=== PATIENT | female | born 1985 | race Hispanic/Latino ===

== ENCOUNTER 2017-11-04 09:31 | Observation (INO) | payer BC ==
[2017-11-04 09:50] VITALS: BMI 26.6
[2017-11-04] MEDS ORDERED: Sodium Chloride 0.9% 1,000 ML IV STA ×3 (10:16→16:00)
[2017-11-04] MEDS ORDERED: Iohexol 240 (50 ml) PO ONE (10:16)
[2017-11-04] MEDS ORDERED: Iohexol 240 (50 ml) ONE (10:28)
[2017-11-04 10:31] LABS: BASO % 0.4 % (0.0-2.0); EOS % 0.2 % (0.0-4.0); HEMOGLOBIN 14.3 g/dL (12.0-16.0); LYMPH # 1.4 K/uL (1.0-4.3); LYMPH % 12.5 % (20.0-40.0); MEAN CELL VOLUME 90.8 fl (81.0-99.0); MEAN CORPUSCULAR HEMOGLOBIN 31.7 pg (27.0-31.0); MEAN CORPUSCULAR HGB CONC 34.9 g/dL (33.0-37.0); MEAN PLATELET VOLUME 8.1 fl (7.2-11.7); MONO # 1.3 K/uL (0.0-0.8); NEUT # 8.4 K/uL (1.8-7.0); NEUT % 74.9 % (50.0-75.0); RBC 4.52 Mil/uL (3.80-5.20); RED CELL DISTRIBUTION WIDTH 12.4 % (11.5-14.5); WHITE BLOOD COUNT 11.2 K/uL (4.8-10.8)
[2017-11-04 10:43] LABS: ALB/GLOB RATIO 1.2 (1.0-2.1); ALBUMIN 4.2 g/dL (3.5-5.0); CALCIUM 9.4 mg/dL (8.4-10.2)
[2017-11-04 11:03] LABS: SQUAMOUS EPITHIAL 10 /hpf (0-5); URINE BACTERIA OCC (<OCC); URINE BILIRUBIN NEGATIVE (NEGATIVE); URINE BLOOD NEGATIVE (NEGATIVE); URINE CLARITY CLOUDY (Clear); URINE COLOR YELLOW (YELLOW); URINE GLUCOSE (UA) NEG (Normal); URINE HYALINE CAST 0-2 /hpf (0-2); URINE LEUKOCYTE ESTERASE SMALL Leu/uL (Negative); URINE PROTEIN 100 mg/dL (NEGATIVE); URINE UROBILINOGEN 0.2-1.0 mg/dL (0.2-1.0)
--- NOTE | 2017-11-04 12:21 | ED PDOC ---
HPI: Abdomen Time Seen by Provider: 11/04/17 10:11 Chief Complaint (Nursing): Abdominal Pain Chief Complaint (Provider): abdominal pain History Per: Patient History/Exam Limitations: no limitations Onset/Duration Of Symptoms: Days (2), Gradual Current Symptoms Are (Timing): Better Location Of Pain/Discomfort: RLQ, LLQ Quality Of Discomfort: Sharp, Cramping Associated Symptoms: Nausea, Diarrhea. denies: Loss Of Appetite, Back Pain, Urinary Symptoms Exacerbating Factors: None Alleviating Factors: None Additional Complaint(s): 32yo female c/o lower abdominal pain ongoing for about 2 days, went to urgent care yesterday had bloodwork performed and she was called this morning informing her that her WBC was 18 and to return to for re-evaluation. She instead came to ED, noting pain is actually a little better than yesterday. She does note persistent nausea and loose stools but denies vomiting today. Denies fever, sick contacts or foreign travel. Past Medical History Reviewed: Historical Data, Nursing Documentation, Vital Signs Vital Signs: Last Vital Signs Temp 98 F 11/04/17 10:09 Pulse 91 H 11/04/17 09:50 Resp 17 11/04/17 09:50 BP 130/70 11/04/17 10:09 Pulse Ox 98 11/04/17 16:03 - Medical History Other PMH: takes antidepressant and adderall - Surgical History Surgical History: No Surg Hx - Family History Family History: States: Unknown Family Hx - Social History Current smoker - smoking cessation education provided: No - Immunization History Hx Tetanus Toxoid Vaccination: No Hx Influenza Vaccination: No Hx Pneumococcal Vaccination: No - Allergies Allergies/Adverse Reactions: Allergies Allergy/AdvReac Type Severity Reaction Status Date / Time No Known Allergies Allergy Verified 11/04/17 10:09 Review of Systems ROS Statement: Except As Marked, All Systems Reviewed And Found Negative Constitutional: Negative for: Fever Cardiovascular: Negative for: Chest Pain Respiratory: Negative for: Shortness of Breath Gastrointestinal: Positive for: Nausea, Abdominal Pain, Diarrhea. Negative for : Constipation Genitourinary Female: Negative for: Dysuria Musculoskeletal: Negative for: Neck Pain Skin: Negative for: Rash, Lesions Neurological: Negative for: Weakness, Numbness Physical Exam - Reviewed Nursing Documentation Reviewed: Yes Vital Signs Reviewed: Yes - Physical Exam Appears: Positive for: Well, Non-toxic, No Acute Distress Head Exam: Positive for: ATRAUMATIC, NORMAL INSPECTION, NORMOCEPHALIC Skin: Positive for: Normal Color, Warm, DRY Eye Exam: Positive for: EOMI, Normal appearance, PERRL ENT: Positive for: Normal ENT Inspection Neck: Positive for: Normal, Painless ROM Cardiovascular/Chest: Positive for: Regular Rate, Rhythm Respiratory: Positive for: CNT, Normal Breath Sounds Gastrointestinal/Abdominal: Positive for: Soft, Tenderness (mild bilateral lower abd tenderness) Back: Positive for: Normal Inspection Extremity: Positive for: Normal ROM Neurologic/Psych: Positive for: Alert, Oriented - Laboratory Results Result Diagrams: 11/04/17 10:25 11/04/17 14:45 - ECG O2 Sat by Pulse Oximetry: 98 Medical Decision Making Medical Decision Making: workup for abd pain w reported leukocytosis as outpatient initiated labs, CT abd pelv and UA/ status ordered IVF bolus, toradol for pain and antiemetic initiated labs reviewed Labor Contract Analyst elevated, change CT to no IV contrast and additional IVF ordered WBC 11.2 Preg neg lipase mildly elevated Hgb and plt normal unlikely HUS Time: 1308 --Abd CT FINDINGS: LOWER THORAX: The visualized lungs are clear. LIVER: Normal in size. No gross lesion or ductal dilatation. GALLBLADDER AND BILE DUCTS: No calcified gallstones. PANCREAS: Normal in size. No calcifications or ductal dilatation. SPLEEN: Normal in size. ADRENALS: No discrete nodule. KIDNEYS AND URETERS: Normal in size without nephrolithiasis. No hydronephrosis. There is nonspecific perinephric fat stranding. VASCULATURE: No aortic aneurysm. BOWEL: The small bowel loops are normal in caliber. There is apparent mild mural thickening in the colon. No bowel dilatation or obstruction. APPENDIX: Normal appendix. PERITONEUM: No free fluid. No free air. LYMPH NODES: No enlarged lymph nodes. BLADDER: Unremarkable. REPRODUCTIVE: The uterus is anteverted. There are a subserosal fibroids in the anterior wall of the midbody and in the posterior fundus. BONES: No acute fracture. Within normal limits for the patient's age. OTHER FINDINGS: None. IMPRESSION: 1. Apparent mild mural thickening in the colon is nonspecific and could be related to underdistention however nonspecific early acute infectious/ inflammatory colitis is also a differential consideration. Clinical correlation and follow-up is advised. No bowel dilatation or obstruction. 2. Fibroid uterus. 230p patient improving denies current abd pain and has had no diarrhea today D/w SEA Juárez at [facility]- reports labs yesterday normal BUN and Labor Contract Analyst 1.3, normal lipase. They have urine culture pending. No evidence acute pancreatitis on Ct and pain now improved hence unlilkely early pancreatitis. time- 330p- no further diarrhea, IVF continuing Labs repeated to gauge improvement of kidney function after 2L IVF Labor Contract Analyst remains elevated from yesterday, still 2.1/ BUN only slightly improved 5p re-eval now back in significant pain. Required morphine 2mg IV for pain. Will start cipro and flagyl empirically given now clinical deterioration and evidence significant dehydration Will place Obs to Dr Og Scribe Attestation: Documented by Gabby George, acting as a scribe for Christian Cummings DO. Provider Scribe Attestation: All medical record entries made by the Scribe were at my direction and personally dictated by me. I have reviewed the chart and agree that the record accurately reflects my personal performance of the history, physical exam, medical decision making, and the department course for this patient. I have also personally directed, reviewed, and agree with the discharge instructions and disposition. Disposition - Clinical Impression Clinical Impression: Dehydration, Acute kidney injury - Patient ED Disposition Is Patient to be Admitted: No Counseled Patient/Family Regarding: Studies Performed, Diagnosis, Need For Followup, Rx Given - Disposition Referrals: Bruno Og MD [Staff Provider] - Disposition: Routine/Home Disposition Time: 16:50 Condition: STABLE Additional Instructions: DRINK PLENTY OF FLUIDS, AVOID ALCOHOL OR CAFFEINE FOR ONE WEEK. HAVE YOUR BLOODWORK REPEATED IN 3-5 DAYS TO ASSURE RESOLUTION OF YOUR KIDNEY INJURY. RETURN TO ER FOR ANY FEVER, WORSE PAIN, RASH OR WEAKNESS. DR OG AWARE OF YOUR CASE. CALL TOMORROW FOR APPOINTMENT WEDNESDAY FOR REPEAT BLOODWORK, OR RETURN TO ER NEEDED. Forms: [employer] (E[place]ian)
--- NOTE | 2017-11-04 13:09 | CT ---
PROCEDURE: CT Abdomen and Pelvis with contrast HISTORY: Lower abdominal pain, diarrhea COMPARISON: None. TECHNIQUE: CT scan of the abdomen and pelvis was performed without administration of intravenous contrast. Oral contrast was administered. Coronal and sagittal reformatted images were obtained. Radiation dose: Total exam DLP = 835.70 mGy-cm. This CT exam was performed using one or more of the following dose reduction techniques: Automated exposure control, adjustment of the mA and/or kV according to patient size, and/or use of iterative reconstruction technique. FINDINGS: LOWER THORAX: The visualized lungs are clear. LIVER: Normal in size. No gross lesion or ductal dilatation. GALLBLADDER AND BILE DUCTS: No calcified gallstones. PANCREAS: Normal in size. No calcifications or ductal dilatation. SPLEEN: Normal in size. ADRENALS: No discrete nodule. KIDNEYS AND URETERS: Normal in size without nephrolithiasis. No hydronephrosis. There is nonspecific perinephric fat stranding. VASCULATURE: No aortic aneurysm. BOWEL: The small bowel loops are normal in caliber. There is apparent mild mural thickening in the colon. No bowel dilatation or obstruction. APPENDIX: Normal appendix. PERITONEUM: No free fluid. No free air. LYMPH NODES: No enlarged lymph nodes. BLADDER: Unremarkable. REPRODUCTIVE: The uterus is anteverted. There are a subserosal fibroids in the anterior wall of the midbody and in the posterior fundus. BONES: No acute fracture. Within normal limits for the patient's age. OTHER FINDINGS: None. IMPRESSION: 1. Apparent mild mural thickening in the colon is nonspecific and could be related to underdistention however nonspecific early acute infectious/ inflammatory colitis is also a differential consideration. Clinical correlation and follow-up is advised. No bowel dilatation or obstruction. 2. Fibroid uterus.
[2017-11-04 15:09] LABS: CALCIUM 8.7 mg/dL (8.4-10.2)
[2017-11-04] MEDS ORDERED: metroNIDAZOLE 500mg/100ml NS 100 ML IV STA (17:11)
[2017-11-04] MEDS ORDERED: metroNIDAZOLE 500mg/100ml NS 100 ML IVPB ONE (17:21)
[2017-11-04] MEDS ORDERED: Ciprofloxacin 400mg/200ml D5W 400 MG/200 ML BAG IVPB ONE (18:31)
[2017-11-04] MEDS: Ciprofloxacin 400mg/200ml D5W 400 MG/200 ML BAG IVPB SCH ×2 (18:36→23:24)
[2017-11-04] MEDS: Sodium Chloride 0.9% 1,000 ML IV SCH (19:29)
[2017-11-04] MEDS ORDERED: Oxycodone/Acetaminophen 5/325 mg Tab ONE ×2 (19:50→20:00)
[2017-11-04] MEDS ORDERED: Oxycodone/Acetaminophen 5/325 mg Tab PO STA (19:58)
--- NOTE | 2017-11-04 20:46 | CP.PCM.HP ---
<Billy Martinez - Last Filed: 11/05/17 01:55> History of Present Illness - History of Present Illness History of Present Illness: 32 YO F w/ PMH of depression, ADHD presented to the ER with 2 days of abdominal pain with diarrhea. Diarrhea was watery but did not contain any blood. Yesterday patient had 10 episode of diarrhea. Today she has only had one. She has been feeling nauseous as well. Denies any vomiting, fever or chills. Yesterday patient had gone to urgent care where she had bloodwork done and they called her to inform her that her WBC was 18 and to return to the urgent care, however patient decided to come to the hospital today. 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 At home she took 1 roxicodone for the pain relief which was not prescribed to her. Patient states that she has noted gastritis since her prozac dose was increased from 20 mg to 40 mg by her psychiatrist. PMD:Dr. Cuogn Melendrez PMH: Depression, ADHD PSH: Benign Cyst removal from her right breast 14 years ago Allergy: Pollen: FH:Mother : HTN, Bipolar. Father: HTN, HLD, PTSD SH: Occasional Marajuana usage. Occasional alcohol usage, Denies smoking Meds: Prozac 40mg, Junel 07/03, Valtex, Trazadone 50 mg (Not taking) Present on Admission - Present on Admission Any Indicators Present on Admission: No Review of Systems - Review of Systems All systems: reviewed and no additional remarkable complaints except Past Patient History - Past Social History Smoking Status: Never Smoked - PSYCHIATRIC Hx Substance Use: No - ANESTHESIA Hx Anesthesia: Yes Hx Anesthesia Reactions: No Hx Malignant Hyperthermia: No Meds Allergies/Adverse Reactions: Allergies Allergy/AdvReac Type Severity Reaction Status Date / Time No Known Allergies Allergy Verified 11/04/17 10:09 Physical Exam - Constitutional Appears: No Acute Distress - Head Exam Head Exam: NORMAL INSPECTION - Eye Exam Eye Exam: Normal appearance - ENT Exam ENT Exam: Mucous Membranes Moist, Normal Exam - Neck Exam Neck exam: Positive for: Normal Inspection - Respiratory Exam Respiratory Exam: Clear to Auscultation Bilateral, NORMAL BREATHING PATTERN. absent: Rhonchi, Wheezes - Cardiovascular Exam Cardiovascular Exam: REGULAR RHYTHM, +S1, +S2 - GI/Abdominal Exam GI & Abdominal Exam: Soft, Tenderness Additional comments: Epigastic, right lower quadrant and left quadrant tenderness - Extremities Exam Extremities exam: Positive for: normal inspection - Back Exam Back exam: absent: CVA tenderness (L), CVA tenderness (R) - Neurological Exam Neurological exam: Alert, CN II-XII Intact, Oriented x3 - Skin Skin Exam: Normal Color, Warm Results - Vital Signs Recent Vital Signs: Last Vital Signs Temp 98.6 F 11/04/17 18:56 Pulse 93 H 11/04/17 19:50 Resp 18 11/04/17 19:50 BP 173/107 H 11/04/17 19:50 Pulse Ox 100 11/04/17 19:50 - Labs Result Diagrams: 11/04/17 10:25 11/04/17 14:45 Labs: Laboratory Results - last 24 hr 11/04/17 11/04/17 11/04/17 10:20 10:25 10:25 WBC 11.2 H RBC 4.52 Hgb 14.3 Hct 41.1 MCV 90.8 MCH 31.7 H MCHC 34.9 RDW 12.4 Plt Count 293 MPV 8.1 Neut % (Auto) 74.9 Lymph % (Auto) 12.5 L [place] % (Auto) 12.0 H Eos % (Auto) 0.2 Baso % (Auto) 0.4 Neut # (Auto) 8.4 H Lymph # (Auto) 1.4 [place] # (Auto) 1.3 H Eos # (Auto) 0.0 Baso # (Auto) 0.0 Sodium 137 Potassium 4.8 Chloride 98 Carbon Dioxide 22 Anion Gap 22 H BUN 29 H Creatinine 2.1 H Est GFR ( Amer) 33 Est GFR (Non-Af Amer) 27 Random Glucose 121 H Calcium 9.4 Total Bilirubin 0.6 AST 37 H ALT 44 Alkaline Phosphatase 41 Total Protein 7.7 Albumin 4.2 Globulin 3.5 Albumin/Globulin Ratio 1.2 Lipase 535 H Urine Color Yellow Urine Clarity Cloudy Urine pH 5.0 Ur Specific [place] 1.015 Urine Protein 100 Urine Glucose (UA) Neg Urine Ketones Negative Urine Blood Negative Urine Nitrate Negative Urine Bilirubin Negative Urine Urobilinogen 0.2-1.0 Ur Leukocyte Esterase Small Urine RBC (Auto) 3 Urine Microscopic WBC 5 Ur Squamous Epith Cells 10 H Urine Bacteria Occ H Hyaline Casts 0-2 11/04/17 14:45 WBC RBC Hgb Hct MCV MCH MCHC RDW Plt Count MPV Neut % (Auto) Lymph % (Auto) [place] % (Auto) Eos % (Auto) Baso % (Auto) Neut # (Auto) Lymph # (Auto) [place] # (Auto) Eos # (Auto) Baso # (Auto) Sodium 135 Potassium 4.6 Chloride 100 Carbon Dioxide 21 L Anion Gap 19 BUN 27 H Creatinine 2.1 H Est GFR ( Amer) 33 Est GFR (Non-Af Amer) 27 Random Glucose 97 Calcium 8.7 Total Bilirubin AST ALT Alkaline Phosphatase Total Protein Albumin Globulin Albumin/Globulin Ratio Lipase Urine Color Urine Clarity Urine pH Ur Specific [place] Urine Protein Urine Glucose (UA) Urine Ketones Urine Blood Urine Nitrate Urine Bilirubin Urine Urobilinogen Ur Leukocyte Esterase Urine RBC (Auto) Urine Microscopic WBC Ur Squamous Epith Cells Urine Bacteria Hyaline Casts Assessment & Plan - Assessment and Plan (Free Text) Assessment: 32 YO F w/ PMH of Depression, ADHD is here today for abdominal pain and diarrhea. 1) Abdominal pain: Collitis vs Pancreatitis - WBC outpatient was 18 today it is 11.2 - Lipase : 535 - CT abdomen: Mural thickening of colon could be related to underdistention however nonspecific early acute infectious/ inflammatory colitis. - Protonix 40 daily - Pain meds ordered - Antibiotic Tx: IV cipro and flagyl - GI consulted - F/U with morning CBC 2) SHANON - Creatinine: 2.1, BUN: 27 - 3 L bolus given in ER - Repeat creatinine after 2 L of fluids was 2.1 - NS @ 200ml/hr - Nephro consulted - Urine Lytes ordered. - F/U with morning CMP 3) ADHD - Hold medications 4) Depression - Prozac dose decreased from 40mg to 20mg since GI upset started after dose increase 5) DVT prophylaxis - Lovenox <Bruno Melendrez A - Last Filed: 11/05/17 06:59> Results - Vital Signs Recent Vital Signs: Last Vital Signs Temp 98.5 F 11/05/17 04:59 Pulse 81 11/05/17 04:59 Resp 18 11/05/17 04:59 BP 147/88 11/05/17 04:59 Pulse Ox 96 11/05/17 04:59 - Labs Result Diagrams: 11/04/17 10:25 11/05/17 05:00 Labs: Laboratory Results - last 24 hr 11/04/17 11/04/17 11/04/17 10:20 10:25 10:25 WBC 11.2 H RBC 4.52 Hgb 14.3 Hct 41.1 MCV 90.8 MCH 31.7 H MCHC 34.9 RDW 12.4 Plt Count 293 MPV 8.1 Neut % (Auto) 74.9 Lymph % (Auto) 12.5 L [place] % (Auto) 12.0 H Eos % (Auto) 0.2 Baso % (Auto) 0.4 Neut # (Auto) 8.4 H Lymph # (Auto) 1.4 [place] # (Auto) 1.3 H Eos # (Auto) 0.0 Baso # (Auto) 0.0 Sodium 137 Potassium 4.8 Chloride 98 Carbon Dioxide 22 Anion Gap 22 H BUN 29 H Creatinine 2.1 H Est GFR ( Amer) 33 Est GFR (Non-Af Amer) 27 Random Glucose 121 H Calcium 9.4 Total Bilirubin 0.6 AST 37 H ALT 44 Alkaline Phosphatase 41 Total Protein 7.7 Albumin 4.2 Globulin 3.5 Albumin/Globulin Ratio 1.2 Triglycerides Cholesterol LDL Cholesterol Direct HDL Cholesterol Lipase 535 H Urine Color Yellow Urine Clarity Cloudy Urine pH 5.0 Ur Specific [place] 1.015 Urine Protein 100 Urine Glucose (UA) Neg Urine Ketones Negative Urine Blood Negative Urine Nitrate Negative Urine Bilirubin Negative Urine Urobilinogen 0.2-1.0 Ur Leukocyte Esterase Small Urine RBC (Auto) 3 Urine Microscopic WBC 5 Ur Squamous Epith Cells 10 H Urine Bacteria Occ H Hyaline Casts 0-2 11/04/17 11/05/17 14:45 05:00 WBC RBC Hgb Hct MCV MCH MCHC RDW Plt Count MPV Neut % (Auto) Lymph % (Auto) [place] % (Auto) Eos % (Auto) Baso % (Auto) Neut # (Auto) Lymph # (Auto) [place] # (Auto) Eos # (Auto) Baso # (Auto) Sodium 135 140 Potassium 4.6 4.2 Chloride 100 105 Carbon Dioxide 21 L 26 Anion Gap 19 13 BUN 27 H 23 H Creatinine 2.1 H 1.7 H Est GFR ( Amer) 33 42 Est GFR (Non-Af Amer) 27 34 Random Glucose 97 97 Calcium 8.7 8.2 L Total Bilirubin 0.3 AST 36 ALT 40 Alkaline Phosphatase 40 Total Protein 5.8 L Albumin 3.1 L D Globulin 2.7 Albumin/Globulin Ratio 1.1 Triglycerides 99 Cholesterol 117 LDL Cholesterol Direct 62 HDL Cholesterol 31 Lipase Urine Color Urine Clarity Urine pH Ur Specific [place] Urine Protein Urine Glucose (UA) Urine Ketones Urine Blood Urine Nitrate Urine Bilirubin Urine Urobilinogen Ur Leukocyte Esterase Urine RBC (Auto) Urine Microscopic WBC Ur Squamous Epith Cells Urine Bacteria Hyaline Casts Attending/Attestation - Attestation I have personally seen and examined this patient.: Yes I have fully participated in the care of the patient.: Yes I have reviewed all pertinent clinical information: Yes
[2017-11-05] MEDS: metroNIDAZOLE 500mg/100ml NS 100 ML IVPB SCH ×3 (02:23→18:03)
[2017-11-05] MEDS: Oxycodone/Acetaminophen 5/325 mg Tab PO PRN ×4 (03:55→21:31)
[2017-11-05 05:58] LABS: ALB/GLOB RATIO 1.1 (1.0-2.1); ALBUMIN 3.1 g/dL (3.5-5.0); CALCIUM 8.2 mg/dL (8.4-10.2)
--- NOTE | 2017-11-05 07:15 | CARD ---
APPROVED REPORT EKG Measurement Heart [id number] <Conclusion> Sinus rhythm with short ME Otherwise normal ECG
[2017-11-05 07:55] LABS: BASO % 0.2 % (0.0-2.0); EOS % 0.3 % (0.0-4.0); HEMOGLOBIN 12.4 g/dL (12.0-16.0); LYMPH # 1.1 K/uL (1.0-4.3); LYMPH % 12.2 % (20.0-40.0); MEAN CELL VOLUME 91.6 fl (81.0-99.0); MEAN CORPUSCULAR HEMOGLOBIN 31.4 pg (27.0-31.0); MEAN CORPUSCULAR HGB CONC 34.3 g/dL (33.0-37.0); MEAN PLATELET VOLUME 8.6 fl (7.2-11.7); MONO % 11.1 % (0.0-10.0); NEUT # 7.1 K/uL (1.8-7.0); NEUT % 76.2 % (50.0-75.0); RBC 3.96 Mil/uL (3.80-5.20); RED CELL DISTRIBUTION WIDTH 12.3 % (11.5-14.5); WHITE BLOOD COUNT 9.3 K/uL (4.8-10.8)
--- NOTE | 2017-11-05 08:51 | CP.PCM.PN ---
Subjective - Date & Time of Evaluation Date of Evaluation: 11/05/17 Time of Evaluation: 07:00 - Subjective Subjective: 32 y/o F seen and examined by bedside. Pt reports feeling better. Abdominal pain is still present but to a less degree of intensity. No diarrhea and no vomiting episodes since yesterday. No acute events overnight. Pt denies fever, chills, nausea, acid reflux, CP, SOB or calf pain. Objective - Vital Signs/Intake and Output Vital Signs (last 24 hours): Temp Pulse Resp BP Pulse Ox 98.0 F 75 20 137/94 H 97 11/05/17 08:17 11/05/17 08:17 11/05/17 08:17 11/05/17 08:17 11/05/17 08:17 - Medications Medications: Current Medications Enoxaparin Sodium (Lovenox) 40 mg SC DAILY [facility] PRN Reason: Protocol Fluoxetine HCl (Prozac) 20 mg PO DAILY [facility] Last Admin: 11/04/17 23:25 Dose: 20 mg Ciprofloxacin (Cipro 400mg/200ml Dsw) 400 mg in 200 mls @ 200 mls/hr IVPB Q12 [facility] PRN Reason: Protocol Last Admin: 11/04/17 23:24 Dose: 200 mls/hr Sodium Chloride (Sodium Chloride 0.9%) 1,000 mls @ 200 mls/hr IV .Q5H [facility] Stop: 11/05/17 19:08 Last Admin: 11/04/17 19:29 Dose: 200 mls/hr Metronidazole (Flagyl 500mg/100ml Ns) 100 mls @ 100 mls/hr IVPB Q8 [facility] PRN Reason: Protocol Last Admin: 11/05/17 02:23 Dose: 100 mls/hr Morphine Sulfate (Morphine) 2 mg IVP Q6 PRN PRN Reason: Pain, severe (8-10) Ondansetron HCl (Zofran Odt) 4 mg PO Q8H PRN PRN Reason: Nausea/Vomiting Oxycodone/Acetaminophen (Percocet 5/325 Mg Tab) 1 tab PO Q6 PRN PRN Reason: Pain, moderate (4-7) Stop: 11/07/17 19:30 Oxycodone/Acetaminophen (Percocet 5/325 Mg Tab) 2 tab PO Q6 PRN PRN Reason: Pain, severe (8-10) Stop: 11/07/17 22:50 Last Admin: 11/05/17 03:55 Dose: 2 tab Pantoprazole Sodium (Protonix Inj) 40 mg IVP DAILY YO - Labs Labs: 11/05/17 07:50 11/05/17 05:00 - Head Exam Head Exam: ATRAUMATIC - Eye Exam Eye Exam: EOMI, Normal appearance - ENT Exam ENT Exam: Mucous Membranes Moist - Neck Exam Neck Exam: Full ROM - Respiratory Exam Respiratory Exam: Clear to Ausculation Bilateral, NORMAL BREATHING PATTERN - Cardiovascular Exam Cardiovascular Exam: REGULAR RHYTHM, +S1, +S2 - GI/Abdominal Exam GI & Abdominal Exam: Soft, Tenderness (on lower quadrants.), Normal Bowel Sounds. absent: Distended, Guarding, Rigid, Rebound - Extremities Exam Extremities Exam: Full ROM, Normal Inspection. absent: Calf Tenderness, Pedal Edema - Neurological Exam Neurological Exam: Alert, Awake, Oriented x3 - Psychiatric Exam Psychiatric exam: Normal Mood Assessment and Plan - Assessment and Plan (Free Text) Assessment: 32 y/o F with a PMHx of Depression and ADHD with abdominal pain and diarrhea, is admitted for evaluation and treatment of Acute Kidney Failure and possible colitis. - CT abdomen: Mural thickening of colon could be related to underdistention however nonspecific early acute infectious/ inflammatory colitis. Abdominal pain: Collitis vs Pancreatitis -WBC trending down and now normal: 18 -> 11.2 -> 9.3 -Lipase 11/04/17: 535-high -C/w IV Protonix, IV cipro and IV flagyl -Pain management: PO Percocet and IV Morphine. -GI consulted, Dr Newell. -F/U GI recommendations. -Ordered Stool culture and ova&parasite Acute Kidney Injury -BUN/Creatinine 23/1.7-high(Abnl), eGFR 34-low (Abnl). -NSS at 75 ml/hr, maintenance. -Nephrology, Dr Cameron, on board. -F/U urine electrolytes, UDS, urine culture. ADHD -Hold medications Depression -Prozac 20mg DVT prophylaxis -Lovenox 40mg SC.
[2017-11-05] MEDS: Enoxaparin 40 mg Syringe SC SCH (08:54)
[2017-11-05] MEDS: Ciprofloxacin 400mg/200ml D5W 400 MG/200 ML BAG IVPB SCH ×2 (08:55→21:31)
[2017-11-05] MEDS: Sodium Chloride 0.9% 1,000 ML IV SCH (08:56)
[2017-11-05] MEDS ORDERED: metroNIDAZOLE 500mg/100ml NS 100 ML IVPB SCH (09:00)
[2017-11-05] MEDS ORDERED: Sodium Chloride 0.9% 1,000 ML IV SCH (12:08)
--- NOTE | 2017-11-05 12:30 | CP.PCM.CON ---
History of Present Illness - History of Present Illness History of Present Illness: This patient however is 72 years of age. I was called to see for abnormal kidney function. This patient will came was 2 days of abdominal pain diarrhea no blood. I noted that she has high BUN/creatinine and she has leukocytosis for which she was admitted for further evaluation. Patient started on IV antibiotics and intravenous fluid. PMH: Depression, ADHD PSH: Benign Cyst removal from her right breast 14 years ago Allergy: Pollen: FH:Mother : HTN, Bipolar. Father: HTN, HLD, PTSD SH: Occasional Marajuana usage. Occasional alcohol usage, Denies smoking Meds: Prozac 40mg, Junel 07/03, Valtex, Trazadone 50 mg (Not taking) Review of Systems - Constitutional Constitutional: Anorexia. absent: Chills - EENT Eyes: As Per HPI Nose/Mouth/Throat: As Per HPI - Cardiovascular Cardiovascular: absent: Chest Pain, Chest Pain at Rest, Dyspnea, Edema - Respiratory Respiratory: absent: Cough, Dyspnea, Hemoptysis, Dyspnea on Exertion, Chest Congestion - Gastrointestinal Gastrointestinal: Abdominal Pain, Bloating, Diarrhea, Nausea. absent: Coffee Ground Emesis, Dysphagia - Genitourinary Genitourinary: Nocturia. absent: Pyuria - Menstruation Menstruation: As Per HPI - Musculoskeletal Musculoskeletal: absent: Abnormal Gait, Arthralgias, Atrophy, Joint Swelling, Numbness - Integumentary Integumentary: absent: Hirsutism - Neurological Neurological: absent: Abnormal Gait, Confusion, Dizziness, Numbness, Focal Weakness - Psychiatric Psychiatric: As Per HPI - Hematologic/Lymphatic Hematologic: absent: Easy Bleeding Past Patient History - Past Medical History & Family History Past Medical History?: Yes - Past Social History Smoking Status: Never Smoked - CARDIAC Hx Cardiac Disorders: No Hx Angina: No Hx Atrial Fibrillation: No Hx Cardia Arrhythmia: No Hx Circulatory Problems: No Hx Congestive Heart Failure: No Hx Heart Attack: No Hx Heart Murmur: No Hx Heart Transplant: No Hx Hypercholesterolemia: No Hx Hypertension: Yes Hx Hypotension: No Hx Internal Defibrillator: No Hx Mitral Valve Prolapse: No Hx Pacemaker: No Hx Peripheral Edema: No Hx Peripheral Vascular Disease: No - PULMONARY Hx Respiratory Disorders: No Hx Asthma: Yes Hx Bronchitis: No Hx Chronic Obstructive Pulmonary Disease (COPD): No Hx Emphysema: No Hx Lung Cancer: No Hx Pneumonia: No Hx Pulmonary Edema: No Hx Pulmonary Embolism: No Hx Respiratory Aspiration: No Hx Respiratory Tract Infection: No Hx Sleep Apnea: No Hx Tuberculosis: No - NEUROLOGICAL Hx Neurological Disorder: No Hx Alzheimer's Disease: No HX Cerebrovascular Accident: No Hx Dementia: No Hx Dizziness: Yes Hx Meningitis: No Hx Migraine: Yes Hx Multiple Sclerosis: No Hx Paralysis: No Hx Parkinson's Disease: No Hx Seizures: No Hx Syncope: No Hx Transient Ischemic Attacks (TIA): No Hx Vertigo: No - HEENT Hx HEENT Problems: No Hx Blind: No Hx Cataracts: No Hx Deafness: No Hx Difficulty Chewing: No Hx Epistaxis: No Hx Glaucoma: No Hx Macular Degeneration: No Hx Sinusitis: No - RENAL Hx Chronic Kidney Disease: No Hx Dialysis: No Hx Kidney Stones: No Hx Neurogenic Bladder: No Hx Pyelonephritis: No Hx Renal (Kidney) Cancer: No Hx Renal Failure: No - ENDOCRINE/METABOLIC Hx Endocrine Disorders: No Hx Adrenal Cancer: No Hx Diabetes Insipidus: No Hx Diabetes Mellitus Type 1: No Hx Diabetes Mellitus Type 2: No Hx Hyperthyroidism: No Hx Hypothyroidism: No Hx Systemic Lupus Erythematosus: No - HEMATOLOGICAL/ONCOLOGICAL Hx Blood Disorders: No Hx AIDS: No Hx Anemia: No Hx Blood Transfusions: No Hx Blood Transfusion Reaction: No Hx Bruising: No Hx Cancer: No Hx Chemotherapy: No Hx Cirrhosis: No Hx Gum Bleeding: No Hx Hemophilia: No Hx Hepatitis A: No Hx Hepatitis B: No Hx Hepatitis C: No Hx Human Immunodeficiency Virus (HIV): No Hx Leukemia: No Hx Metastesis: No Hx Shingles: No Hx Sickle Cell Disease: No Hx Unexplained Bleeding: No Hx von Willebrand's Disease: No - INTEGUMENTARY Hx Dermatological Problems: No Hx Basil Cell: No Hx Garcia: No Hx Cellulitis: No Hx Eczema: No Hx Melanoma: No Hx Psoriasis: No Hx Squamous Cell: No - MUSCULOSKELETAL/RHEUMATOLOGICAL Hx Musculoskeletal Disorders: No Hx Arthritis: No Hx Back Pain: No Hx Degenerative Joint Disease: No Hx Falls: No Hx Fractures: No Hx Gout: No Hx Herniated Disk: No Hx Myasthenia Gravis: No Hx Osteoarthritis: No Hx Osteomyelitis: No Hx Osteoporosis: No Hx Rhabdomyolysis: No Hx Rheumatoid Arthritis: No Hx Spinal Stenosis: No Hx Unsteady Gait: No - GASTROINTESTINAL Hx Gastrointestinal Disorders: No Hx Bowel Surgery: No Hx Clostridium Difficile: No Hx Colitis: No Hx Colostomy: No Hx Constipation: No Hx Crohn's Disease: No Hx Diarrhea: Yes Hx Diverticulitis: No Hx Esophageal Varices: No Hx Fatty Liver Disease: No Hx Gall Bladder Disease: No Hx Gastritis: No Hx Gastroesophageal Reflux: No Hx Hemorrhoids: No Hx Ileostomy: No Hx Irritable Bowel: No Hx Liver Failure: No Hx Nausea: No Hx Pancreatitis: No HX Swallowing Problems: No Hx Ulcer: No Hx Vomiting: No - GENITOURINARY/GYNECOLOGICAL Hx Genitourinary Disorders: No Hx Bladder Cancer: No Hx Bladder Stone: No Hx Cervical Cancer: No Hx Hematuria: No Hx Incontinence: No Hx Ovarian Cancer: No Hx Postmenopausal Bleeding: No Hx Reproductive Disorders: No Hx Sexually Transmitted Disorders: No Hx Uterine Cancer: No Hx Urinary Tract Infection: No - PSYCHIATRIC Hx Substance Use: No - SURGICAL HISTORY Hx Surgeries: No Hx Abdominal Aortic Aneurysm Repair: No Hx Amputation: No Hx Angiogram: No Hx Angioplasty: No Hx Appendectomy: No Hx Arteriovenous Shunt: No Hx Arthroscopy: No Hx Bile Duct Stent: No Hx Breast Biopsy: No Hx Cataract Extraction: No Hx Cardiac Catheterization: No Hx Carotid Endarterectomy: No Hx Section: No Hx Cholecystectomy: No Hx Coronary Artery Bypass Graft: No Hx Coronary Stent: No Hx Dilation and Curettage: No Hx Eye Surgery: No Hx Femoral-Popliteal Bypass Graft: No Hx Gastric Bypass Surgery: No Hx Herniorrhaphy: No Hx Hysterectomy: No Hx Joint Replacement: No Hx Kidney Transplant: No Hx Liver Transplant: No Hx Mastectomy: No Hx Musculoskeletal Surgery: No Hx Open Heart Surgery: No Hx Open Reduction Internal Fixation: No Hx Orthopedic Surgery: No Hx Parathyroidectomy: No Hx Penile Implant: No Hx Pulmonary Surgery: No Hx Splenectomy: No Hx Thyroidectomy: No Hx Tonsillectomy: No Hx Tubal Ligation: No Hx Valve Replacement: No Hx Vascular Surgery: No Hx Vascular Access Device: No Other/Comment: 2 benign tumors removed from R breast - ANESTHESIA Hx Anesthesia: Yes Hx Anesthesia Reactions: No Hx Malignant Hyperthermia: No Meds Allergies/Adverse Reactions: Allergies Allergy/AdvReac Type Severity Reaction Status Date / Time No Known Allergies Allergy Verified 11/04/17 10:09 - Medications Medications: Current Medications Enoxaparin Sodium (Lovenox) 40 mg SC DAILY YO PRN Reason: Protocol Last Admin: 11/05/17 08:54 Dose: 40 mg Fluoxetine HCl (Prozac) 20 mg PO DAILY [facility] Last Admin: 11/05/17 08:54 Dose: 20 mg Ciprofloxacin (Cipro 400mg/200ml Dsw) 400 mg in 200 mls @ 200 mls/hr IVPB Q12 YO PRN Reason: Protocol Last Admin: 11/05/17 08:55 Dose: 200 mls/hr Metronidazole (Flagyl 500mg/100ml Ns) 100 mls @ 100 mls/hr IVPB Q8 YO PRN Reason: Protocol Last Admin: 11/05/17 08:54 Dose: 100 mls/hr Sodium Chloride (Sodium Chloride 0.9%) 1,000 mls @ 75 mls/hr IV .[id number] [facility] Stop: 11/05/17 19:08 Morphine Sulfate (Morphine) 2 mg IVP Q6 PRN PRN Reason: Pain, severe (8-10) Ondansetron HCl (Zofran Odt) 4 mg PO Q8H PRN PRN Reason: Nausea/Vomiting Oxycodone/Acetaminophen (Percocet 5/325 Mg Tab) 1 tab PO Q6 PRN PRN Reason: Pain, moderate (4-7) Stop: 11/07/17 19:30 Last Admin: 11/05/17 09:09 Dose: 1 tab Oxycodone/Acetaminophen (Percocet 5/325 Mg Tab) 2 tab PO Q6 PRN PRN Reason: Pain, severe (8-10) Stop: 11/07/17 22:50 Last Admin: 11/05/17 03:55 Dose: 2 tab Pantoprazole Sodium (Protonix Inj) 40 mg IVP DAILY [facility] Last Admin: 11/05/17 08:54 Dose: 40 mg Physical Exam - Constitutional Appears: No Acute Distress - Eye Exam Eye Exam: absent: Conjunctival injection - ENT Exam ENT Exam: Mucous Membranes Moist - Neck Exam Neck exam: Negative for: Lymphadenopathy - Respiratory Exam Respiratory Exam: NORMAL BREATHING PATTERN. absent: Chest Wall Tenderness - Cardiovascular Exam Cardiovascular Exam: REGULAR RHYTHM. absent: Tachycardia, Clicks, Gallop, JVD - GI/Abdominal Exam GI & Abdominal Exam: Normal Bowel Sounds. absent: Distended, Firm, Organomegaly - Extremities Exam Extremities exam: Negative for: calf tenderness - Back Exam Back exam: absent: CVA tenderness (L), CVA tenderness (R) - Neurological Exam Neurological exam: Alert - Psychiatric Exam Psychiatric exam: Normal Affect Results - Vital Signs Recent Vital Signs: Last Vital Signs Temp 98.1 F 11/05/17 12:26 Pulse 78 11/05/17 12:26 Resp 20 11/05/17 12:26 BP 166/100 H 11/05/17 12:26 Pulse Ox 100 11/05/17 12:26 - Labs Result Diagrams: 11/05/17 07:50 11/05/17 05:00 Labs: Laboratory Results - last 24 hr 11/04/17 11/05/17 11/05/17 14:45 05:00 07:50 WBC 9.3 RBC 3.96 Hgb 12.4 Hct 36.3 MCV 91.6 MCH 31.4 H MCHC 34.3 RDW 12.3 Plt Count 234 MPV 8.6 Neut % (Auto) 76.2 H Lymph % (Auto) 12.2 L [place] % (Auto) 11.1 H Eos % (Auto) 0.3 Baso % (Auto) 0.2 Neut # (Auto) 7.1 H Lymph # (Auto) 1.1 [place] # (Auto) 1.0 H Eos # (Auto) 0.0 Baso # (Auto) 0.0 Sodium 135 140 Potassium 4.6 4.2 Chloride 100 105 Carbon Dioxide 21 L 26 Anion Gap 19 13 BUN 27 H 23 H Creatinine 2.1 H 1.7 H Est GFR ( Amer) 33 42 Est GFR (Non-Af Amer) 27 34 Random Glucose 97 97 Calcium 8.7 8.2 L Total Bilirubin 0.3 AST 36 ALT 40 Alkaline Phosphatase 40 Total Protein 5.8 L Albumin 3.1 L D Globulin 2.7 Albumin/Globulin Ratio 1.1 Triglycerides 99 Cholesterol 117 LDL Cholesterol Direct 62 HDL Cholesterol 31 Assessment & Plan - Assessment and Plan (Free Text) Assessment: Patient appeared to have most likely acute kidney injury secondary to dehydration. Recommendations stat spot urine for sodium osmolality and creatinine. Discussed with the resident to give IV fluid this morning however her blood pressure started to go up and she appeared to be well hydrated therefore cut down the IV fluid perhaps to 50 mL/h also. Patient is receiving antibiotics as per ID with a renal dose consideration. Patient stated that she wished to go home and its up to the primary team patient will need to repeat BMP tomorrow morning
--- NOTE | 2017-11-05 21:12 | CON ---
DATE: 11/05/2017 REFERRING DOCTOR: Bruno Og MD REASON FOR CONSULTATION: Diarrhea and abdominal pain. HISTORY OF PRESENT ILLNESS: This is a very smiley 32-year-old female with history of depression, ADHD sent in for the ER for abdominal pain and diarrhea for the past couple of 3 days, was seen in [facility], and sent back to the hospital for worsening diarrhea and abdominal pain. The patient actually feels better, is actually hungry, lying in bed comfortably, and in no apparent distress. PAST MEDICAL HISTORY: As above. PAST SURGICAL HISTORY: As above. MEDICATIONS: Have been reviewed. REVIEW OF SYSTEMS: All other systems have been reviewed and negative apart from the HPI. PHYSICAL EXAMINATION: VITAL SIGNS: In the hospital are grossly unremarkable. GENERAL: A pleasant middle-aged female lying in bed comfortably and in no apparent distress. HEENT: Head is normocephalic and atraumatic. Eyes; pupils are equally reactive to light bilaterally. No conjunctival pallor or icterus. NECK: Supple. Normal range of motion. No lymphadenopathy appreciated. LUNGS: Coarse breath sounds bilaterally. HEART: S1 and S2, regular rate and rhythm. No murmurs appreciated. ABDOMEN: Soft and nontender. Bowel sounds are present. No rebound. No guarding. RECTAL: Deferred. EXTREMITIES: Pulses felt bilaterally. SKIN: Warm, dry and intact. NEUROLOGIC: A and O x3. LABORATORY DATA: All labs and radiology have been reviewed. Labs include a WBC of stable. Lipase is 535. CAT scan shows a nonspecific colitis. ASSESSMENT AND PLAN: This is a 32-year-old female with what appears to be colitis, antibiotics for 14 days, and advance diet as tolerated. I will follow up in the office for outpatient followup. Thank you for the consult. Christian Newell MD/ PhD cc: Bruno Og MD
[2017-11-05 23:00] LABS: OSMOLALITY,URINE 353 mosm/kg (300-1000)
[2017-11-05 23:03] LABS: BARBITURATES, UR NEGATIVE (NEGATIVE); BENZODIAZEPINES, UR NEGATIVE (NEGATIVE); CREATININE, RANDOM URINE 55.7 mg/dL; OPIATES, UR POSITIVE (NEGATIVE); PHENCYCLIDINE, UR NEGATIVE (NEGATIVE)
[2017-11-06] MEDS: metroNIDAZOLE 500mg/100ml NS 100 ML IVPB SCH ×2 (01:35→08:51)
[2017-11-06] MEDS: Oxycodone/Acetaminophen 5/325 mg Tab PO PRN (05:07)
[2017-11-06 06:38] LABS: HEMOGLOBIN 12.5 g/dL (12.0-16.0); MEAN CELL VOLUME 89.3 fl (81.0-99.0); MEAN CORPUSCULAR HEMOGLOBIN 31.6 pg (27.0-31.0); MEAN CORPUSCULAR HGB CONC 35.3 g/dL (33.0-37.0); RBC 3.96 Mil/uL (3.80-5.20); RED CELL DISTRIBUTION WIDTH 12.4 % (11.5-14.5); WHITE BLOOD COUNT 10.8 K/uL (4.8-10.8)
[2017-11-06 07:01] LABS: ALB/GLOB RATIO 1.2 (1.0-2.1); ALBUMIN 3.4 g/dL (3.5-5.0); ALT/SGPT 36 U/L (9-52); AST/SGOT 23 U/L (14-36); BLOOD UREA NITROGEN 14 mg/dl (7-17); CALCIUM 8.7 mg/dL (8.4-10.2); GFR AFRICAN-AMERICAN > 60; GFR NON-AFRICAN AMERICAN > 60
[2017-11-06 08:04] VITALS: O2SAT 99
[2017-11-06] MEDS: Enoxaparin 40 mg Syringe SC SCH (08:49)
[2017-11-06] MEDS: Ciprofloxacin 400mg/200ml D5W 400 MG/200 ML BAG IVPB SCH (08:51)
--- NOTE | 2017-11-06 11:08 | CP.PCM.DIS ---
Provider - Provider Date of Admission: 11/04/17 17:22 Attending physician: Bruno Og MD Primary care physician: Dr Bruno Og Consults: GI: Dr Garza Nephrology: Dr Cameron Time Spent in preparation of Discharge (in minutes): 25 Diagnosis - Discharge Diagnosis (1) Colitis Status: Acute Comment: -To complete 14 days of PO antibiotics: Ciprofloxacin and Metronidazole. (2) Acute kidney injury Status: Acute Comment: Resolved. Hospital Course - Lab Results Lab Results: Most Recent Lab Values WBC 10.8 K/uL (4.8-10.8) 11/06/17 06:12 RBC 3.96 Mil/uL (3.80-5.20) 11/06/17 06:12 Hgb 12.5 g/dL (12.0-16.0) 11/06/17 06:12 Hct 35.3 % (34.0-47.0) 11/06/17 06:12 MCV 89.3 fl (81.0-99.0) D 11/06/17 06:12 MCH 31.6 pg (27.0-31.0) H 11/06/17 06:12 MCHC 35.3 g/dL (33.0-37.0) 11/06/17 06:12 RDW 12.4 % (11.5-14.5) 11/06/17 06:12 Plt Count 280 K/uL (130-400) 11/06/17 06:12 MPV 8.6 fl (7.2-11.7) 11/05/17 07:50 Neut % (Auto) 76.2 % (50.0-75.0) H 11/05/17 07:50 Lymph % (Auto) 12.2 % (20.0-40.0) L 11/05/17 07:50 [place] % (Auto) 11.1 % (0.0-10.0) H 11/05/17 07:50 Eos % (Auto) 0.3 % (0.0-4.0) 11/05/17 07:50 Baso % (Auto) 0.2 % (0.0-2.0) 11/05/17 07:50 Neut # (Auto) 7.1 K/uL (1.8-7.0) H 11/05/17 07:50 Lymph # (Auto) 1.1 K/uL (1.0-4.3) 11/05/17 07:50 [place] # (Auto) 1.0 K/uL (0.0-0.8) H 11/05/17 07:50 Eos # (Auto) 0.0 K/uL (0.0-0.7) 11/05/17 07:50 Baso # (Auto) 0.0 K/uL (0.0-0.2) 11/05/17 07:50 Sodium 139 mmol/l (132-148) 11/06/17 06:12 Potassium 3.7 MMOL/L (3.6-5.0) 11/06/17 06:12 Chloride 102 mmol/L (98-107) 11/06/17 06:12 Carbon Dioxide 26 mmol/L (22-30) 11/06/17 06:12 Anion Gap 15 (10-20) 11/06/17 06:12 BUN 14 mg/dl (7-17) 11/06/17 06:12 Creatinine 1.0 mg/dl (0.7-1.2) 11/06/17 06:12 Est GFR ( Amer) > 60 11/06/17 06:12 Est GFR (Non-Af Amer) > 60 11/06/17 06:12 Random Glucose 107 mg/dL (65-105) H 11/06/17 06:12 Calcium 8.7 mg/dL (8.4-10.2) 11/06/17 06:12 Total Bilirubin 0.4 mg/dl (0.2-1.3) 11/06/17 06:12 AST 23 U/L (14-36) 11/06/17 06:12 ALT 36 U/L (9-52) 11/06/17 06:12 Alkaline Phosphatase 46 U/L (38-126) 11/06/17 06:12 Total Protein 6.3 G/DL (6.3-8.2) 11/06/17 06:12 Albumin 3.4 g/dL (3.5-5.0) L 11/06/17 06:12 Globulin 2.9 gm/dL (2.2-3.9) 11/06/17 06:12 Albumin/Globulin Ratio 1.2 (1.0-2.1) 11/06/17 06:12 Triglycerides 99 mg/DL (0-149) 11/05/17 05:00 Cholesterol 117 mg/dL (0-199) 11/05/17 05:00 LDL Cholesterol Direct 62 mg/dL (0-129) 11/05/17 05:00 HDL Cholesterol 31 MG/DL (30-70) 11/05/17 05:00 Lipase 535 U/L (23-300) H 11/04/17 10:25 Urine Color Yellow (YELLOW) 11/04/17 10:20 Urine Clarity Cloudy (Clear) 11/04/17 10:20 Urine pH 5.0 (5.0-8.0) 11/04/17 10:20 Ur Specific [place] 1.015 (1.003-1.030) 11/04/17 10:20 Urine Protein 100 mg/dL (NEGATIVE) 11/04/17 10:20 Urine Glucose (UA) Neg mg/dL (Normal) 11/04/17 10:20 Urine Ketones Negative mg/dL (NEGATIVE) 11/04/17 10:20 Urine Blood Negative (NEGATIVE) 11/04/17 10:20 Urine Nitrate Negative (NEGATIVE) 11/04/17 10:20 Urine Bilirubin Negative (NEGATIVE) 11/04/17 10:20 Urine Urobilinogen 0.2-1.0 mg/dL (0.2-1.0) 11/04/17 10:20 Ur Leukocyte Esterase Small [place]/uL (Negative) 11/04/17 10:20 Urine RBC (Auto) 3 /hpf (0-3) 11/04/17 10:20 Urine Microscopic WBC 5 /hpf (0-5) 11/04/17 10:20 Ur Squamous Epith Cells 10 /hpf (0-5) H 11/04/17 10:20 Urine Bacteria Occ (<OCC) H 11/04/17 10:20 Hyaline Casts 0-2 /hpf (0-2) 11/04/17 10:20 Urine Osmolality 353 mosm/kg (300-1000) 11/05/17 22:15 Ur Random Creatinine 55.7 mg/dL 11/05/17 22:15 Ur Random Sodium 78 mmol/L 11/05/17 22:15 Urine Opiates Screen Positive (NEGATIVE) H 11/05/17 22:15 Urine Methadone Screen Negative (NEGATIVE) 11/05/17 22:15 Ur Barbiturates Screen Negative (NEGATIVE) 11/05/17 22:15 Ur Phencyclidine Scrn Negative (NEGATIVE) 11/05/17 22:15 Ur Amphetamines Screen Negative (NEGATIVE) 11/05/17 22:15 U Benzodiazepines Scrn Negative (NEGATIVE) 11/05/17 22:15 U Oth Cocaine Metabols Negative (NEGATIVE) 11/05/17 22:15 U Cannabinoids Screen Negative (NEGATIVE) 11/05/17 22:15 - Hospital Course Hospital Course: 32 y/o F was admitted for evaluation and management of acute kidney injury and colitis. Pt received 2.5 days of IV Metronidazole and Ciprofloxacin. SHANON was resolved after 2 days of IV fluids. GI recommended 14 days of antibiotics. Her BP was elevated during this admission, was controlled by decreasing IV fluid rate of infusion, pt was advised to f/u BP with his PCP. Pt remained afebrile, tolerating PO since last afternoon, no more diarrhea episodes for 2 days. Pt stable, discharged home w/ PO antibiotics for 11.5 days. - Date & Time of H&P Date of H&P: 11/04/17 Time of H&P: 20:46 Discharge Exam - Head Exam Head Exam: ATRAUMATIC - Eye Exam Eye Exam: EOMI, Normal appearance - ENT Exam ENT Exam: Mucous Membranes Moist, Normal Oropharynx - Neck Exam Neck exam: Full Rom, Normal Inspection - Respiratory Exam Respiratory Exam: Clear to PA & Lateral, NORMAL BREATHING PATTERN - Cardiovascular Exam Cardiovascular Exam: REGULAR RHYTHM, +S1, +S2 - GI/Abdominal Exam GI & Abdominal Exam: Normal Bowel Sounds, Soft. absent: Distended, Guarding, Rebound, Tenderness - Neurological Exam Neurological exam: Alert, Oriented x3 Discharge Plan - Discharge Medications Prescriptions: Ciprofloxacin [Cipro] 500 mg PO Q12 #23 tab Metronidazole 500 mg PO Q8H #34 tablet Ondansetron ODT [Zofran ODT] 4 mg PO Q8H PRN #10 odt PRN Reason: Nausea/Vomiting - Follow Up Plan Condition: STABLE Disposition: HOME/ ROUTINE Additional Instructions: DRINK PLENTY OF FLUIDS, AVOID ALCOHOL OR CAFFEINE FOR ONE WEEK. RETURN TO ER FOR ANY FEVER, WORSE PAIN, RASH OR WEAKNESS. F/U WITH DR GARZA, BOTT[facility] BRUSHER, WITHIN 1 WEEK. F/U with PCP with Dr Og within 1 week, please address elevated blood pressure with PCP. Referrals: Bruno Og MD [Staff Provider] -
[2017-11-06 12:47] VITALS: BP 158/94; PULSE 88; RESP 20; TEMP 98.4
--- NOTE | 2017-11-06 23:01 | CP.PCM.PN ---
Subjective - Date & Time of Evaluation Date of Evaluation: 11/06/17 Time of Evaluation: 10:00 Objective - Vital Signs/Intake and Output Vital Signs (last 24 hours): Temp Pulse Resp BP Pulse Ox 98.4 F 88 20 158/94 H 99 11/06/17 12:46 11/06/17 12:46 11/06/17 12:46 11/06/17 12:46 11/06/17 12:46 - Labs Labs: 11/06/17 06:12 11/06/17 06:12
== END 2017-11-06 14:17 | disposition home or self-care (01) ==
LOC: H.ER 09:31 → H.ERHOLD 17:22 → H.TEL 21:52
PROVIDERS: ADMIT Family Medicine; ATTEND Family Medicine
DX: N17.9 Acute kidney failure, unspecified (principal); E86.0 Dehydration; F90.9 Attention-deficit hyperactivity disorder, unspecified type; F32.9 Major depressive disorder, single episode, unspecified; K52.9 Noninfective gastroenteritis and colitis, unspecified; K29.70 Gastritis, unspecified, without bleeding; I10 Essential (primary) hypertension; J45.909 Unspecified asthma, uncomplicated
CPT/HCPCS: 36415; 74176; 80048; 80053; 80061; 81003; 81025; 82570; 83690; 83935; 84300; 85025; 85027; 87086; 93005; 96361; 96365; 96366; 96367; 96372; 96375; 96376; 99285; C9113; G0378; G0480; J0744; J1650; J1885; J2270; J2765; J7040; Q9966